=== PATIENT | male | born 1955 ===

== ENCOUNTER → 2017-08-23 | Outpatient (CLI) | payer BC ==
[~2017-08-23] VITALS: Ht 175.3 cm; Wt 104.3 kg
[~2017-08-23] MED LIST: CATHETER FLUSH 10 ML SYR IV PRN; REGADENOSON 0.4 MG/5 ML SYR (LEXISCAN) IV ONE
[2017-08-23 12:47] VITALS: BP 188/101
[2017-08-23 12:59] VITALS: BP 178/114
--- NOTE | 2017-08-25 14:14 | STRESS TEST ---
DATE OF SERVICE: 08/23/2017 RESTING AND POST REGADENOSON TECHNETIUM 99M TETROFOSMIN SPECT CT IMAGING ORDERING PHYSICIAN: Dr. Dickinson. PRIMARY PHYSICIAN: Dr. Houston. CLINICAL DIAGNOSIS: Coronary artery disease. Baseline images were carried out after injection of 10.68 mCi of technetium-99m Tetrofosmin. This was followed by 0.4 mg regadenoson and 30 mCi of technetium-99m Tetrofosmin for stress imaging. The electrocardiogram showed sinus rhythm with isolated premature ventricular contractions. The electrocardiogram did not change significantly with the regadenoson infusion. The patient noted some shortness of breath and flushing following regadenoson infusion, which resolved in a few minutes. Overall, the patient tolerated the procedure well. Review of images at rest and following stress does not indicate any significant perfusion defects consistent with significant myocardial ischemia or infarction. Gated images show normal global left ventricular systolic function with left ventricular ejection fraction of 56%. Left ventricular end diastolic volume is 119 mL. TID is absent (1.02). CONCLUSIONS: 1. No evidence of significant myocardial ischemia or infarction on this study. 2. Normal regional wall motion with left ventricular ejection fraction of 56%. 3. Mild cardiomegaly is suggested on this study. Job ID: [id number] DocumentID: [id number] Dictated Date: 08/25/2017 12:10:46 Auto Rental Clerk Date: 08/25/2017 13:51:21 Dictated By: RUBEN DICKINSON MD, MA, FACP, FACC,
== END ==
LOC: EDSEX → CARD 10:04
PROVIDERS: ATTEND Internal Medicine Cardiovascular Disease
DX: I25.10 Atherosclerotic heart disease of native coronary artery without angina pectoris (principal); I10 Essential (primary) hypertension; Z86.73 Personal history of transient ischemic attack (TIA), and cerebral infarction without residual deficits
CPT/HCPCS: 78452; 93017